=== PATIENT | female | born 1960 | race African-American/Black ===

== ENCOUNTER 2022-04-16 09:38 | Emergency (ER) | payer MEDICAID ==
[~2022-04-16] VITALS: Ht 167.6 cm; Wt 93.9 kg
[2022-04-16 09:51] VITALS: BP_SYST 115
--- NOTE | 2022-04-16 10:04 | NUR ---
Patient triaged and placed in waiting room. VSS and patient appears in no acute distress at this time. Accompanied by , awaiting available bed, and MD notified of need for MSE.
--- NOTE | 2022-04-16 10:34 | NUR ---
Patient to ER bed 07 to gown for evaluation. Side rails up. Report given to Patsy LANG.
[2022-04-16] MEDS ORDERED: DIPHTH,PERTUSS(ACELL),TET VAC 0.5 ML VIAL (Tdap) I.M. ONE (10:45)
[2022-04-16] MEDS ORDERED: BACITRACIN 1 GM OINT TP ONE (10:45)
[2022-04-16] MEDS ORDERED: LIDOCAINE 1% 10 MG/ML, 20 ML MDV INJ ONE (10:45)
--- NOTE | 2022-04-16 10:45 | NUR ---
ER at bedside examining patient.
--- NOTE | 2022-04-16 11:10 | NUR ---
DR HUFFMAN AT BEDSIDE, I AND D OF ABSCESS DONE BY . PT TOLERATED WELL, SITE COVERED WITH 4X4 S AND TAPED IN PLACE
[2022-04-16] MEDS ORDERED: IBUP-1969 PO (11:27)
[2022-04-16] MEDS ORDERED: CLIN-22 PO (11:27)
[2022-04-16 11:48] VITALS: BP_SYST 132
--- NOTE | 2022-04-16 11:52 | NUR ---
Patient given written and verbal discharge instructions and verbalizes understanding. ER MD discussed with patient the results and treatment provided. Patient in stable condition. ID arm band removed. WOUND CARE INSTRUCTIONS GIVEN Rx of ANTIBIOTICS AND IBUPROFEN given. Patient educated on pain management and to follow up with PMD. Pain Scale . Opportunity for questions provided and answered. Medication side effect fact sheet provided.
== END 2022-04-16 11:52 | disposition home or self-care (01) ==
LOC: SED 09:38
DX: L02.212 Cutaneous abscess of back [any part, except buttock and flank] (principal); Z88.6 Allergy status to analgesic agent; Z79.899 Other long term (current) drug therapy
CPT/HCPCS: 90715; 99283

== ENCOUNTER 2022-04-19 13:27 | Emergency (ER) | payer MEDICAID ==
[~2022-04-19] VITALS: Ht 167.6 cm; Wt 93.9 kg
[~2022-04-19 13:27] MED LIST: CLIN-22 PO; IBUP-1969 PO
[2022-04-19 13:30] VITALS: BP_SYST 134
[2022-04-19] MEDS ORDERED: BACITRACIN 1 GM OINT TP ONE (15:01)
[2022-04-19 15:02] VITALS: BP_SYST 134
== END 2022-04-19 15:02 | disposition home or self-care (01) ==
LOC: SED 13:27
DX: Z48.00 Encounter for change or removal of nonsurgical wound dressing (principal); L02.212 Cutaneous abscess of back [any part, except buttock and flank]; Z79.899 Other long term (current) drug therapy
CPT/HCPCS: 99281

== ENCOUNTER → 2022-04-30 | Emergency (ER) | payer MEDICAID ==
[~2022-04-30] VITALS: Ht 165.1 cm; Wt 77.1 kg
[2022-04-30 15:34] VITALS: BP_SYST 110
[2022-04-30 15:42] VITALS: BP_SYST 110
== END | disposition left against medical advice (07) ==
LOC: SED 15:01
DX: Z00.00 Encounter for general adult medical examination without abnormal findings (principal); Z53.21 Procedure and treatment not carried out due to patient leaving prior to being seen by health care provider

== ENCOUNTER 2023-11-16 13:12 | Emergency (ER) | payer MEDICAID, OTHER ==
[~2023-11-16] VITALS: Ht 167.6 cm; Wt 103.9 kg
[2023-11-16 13:24] VITALS: BP_SYST 110; PULSE 61; RESP 18; TEMP 97.3; O2SAT 9; O2SAT 99
[2023-11-16 13:30] VITALS: BP_SYST 110; PULSE 61; RESP 18; TEMP 97.3; O2SAT 99
== END 2023-11-16 15:00 | disposition home or self-care (01) ==
LOC: SED 13:12
DX: Z48.00 Encounter for change or removal of nonsurgical wound dressing (principal); Z88.6 Allergy status to analgesic agent
CPT/HCPCS: 99281